=== PATIENT | female | born 1940 ===

== ENCOUNTER 2020-07-28 07:11 | Day surgery (SDC) | payer OTHER | END 2020-07-28 13:30 | disposition home or self-care (01) | LOC: AMB-ENDOS 07:11 | PROVIDERS: ATTEND Colon & Rectal Surgery | DX: K62.89 Other specified diseases of anus and rectum (principal); K64.2 Third degree hemorrhoids; Z20.828 Contact with and (suspected) exposure to other viral communicable diseases ==